=== PATIENT | male | born 1990 | race Caucasian/White ===

== ENCOUNTER 2021-08-17 22:53 | Emergency (ER) | payer MEDICAID ==
[~2021-08-17] VITALS: Ht 170.2 cm; Wt 71.2 kg
[2021-08-17 22:59] VITALS: BP 140/95
[2021-08-17 23:39] VITALS: BP 140/95
--- NOTE | 2021-08-17 23:39 | NUR ---
DISCHARGED IN CUSTODY OF [facility]. OK TO BOOK
== END 2021-08-17 23:39 ==
LOC: MED 22:53
DX: Z02.89 Encounter for other administrative examinations (principal); V89.2XXA Person injured in unspecified motor-vehicle accident, traffic, initial encounter; Y93.89 Activity, other specified; Y92.89 Other specified places as the place of occurrence of the external cause; Y99.8 Other external cause status
CPT/HCPCS: 99283